=== PATIENT | male | born 1995 | race Caucasian/White ===

== ENCOUNTER 2023-06-18 18:25 | Emergency (ER) | payer MEDICAID ==
[~2023-06-18] VITALS: Ht 165.1 cm; Wt 104.3 kg
[2023-06-18 18:46] VITALS: BP_SYST 135; PULSE 70; RESP 18; TEMP 98.4; O2SAT 99
[2023-06-18] MEDS ORDERED: PRED20TA PO (19:29)
[2023-06-18] MEDS ORDERED: IBUP-1971 PO (19:29)
[2023-06-18] MEDS: predniSONE 20 MG TABLET PO ONE (19:44)
[2023-06-18] MEDS: HYDROcodone/ACETAMIN 10-325 MG TAB PO ONE (19:47)
[2023-06-18] MEDS: KETOROLAC TROMETHAMINE 60 MG/2 ML VIAL IM ONE (19:48)
[2023-06-18] MEDS ORDERED: HYDR-3917 PO (19:53)
[2023-06-18 19:54] VITALS: BP_SYST 132; PULSE 67; RESP 18; TEMP 98.2; O2SAT 99
== END 2023-06-18 19:45 | disposition home or self-care (01) ==
LOC: SED 18:25
DX: M06.832 Other specified rheumatoid arthritis, left wrist (principal); M06.862 Other specified rheumatoid arthritis, left knee; M06.861 Other specified rheumatoid arthritis, right knee
CPT/HCPCS: 99283; 96372; J7512; J1885